=== PATIENT | female | born 1960 | race Caucasian/White ===

== ENCOUNTER 2025-08-31 22:23 | Emergency (ER) | payer SELFPAY ==
[2025-08-31] MEDS ORDERED: KETOROLAC 30 MG/ML INJ ONE (22:28)
[2025-08-31] MEDS ORDERED: NA CHLORIDE 0.9% 1,000 ML ONE (22:28)
[2025-08-31] MEDS ORDERED: ACETAMINOPHEN 500 MG TAB ONE (22:28)
--- NOTE | 2025-08-31 23:45 | ER ---
Nurse's Notes [facility] Name: Ceci Espinosa Age: 65 yrs Sex: Female : 1960 Arrival Date: 08/31/2025 Time: 22:23 Bed 2 Private MD: Diagnosis: Migraine without aura, not intractable Presentation: 08/31 22:26 Chief complaint: EMS states: pt presents to the ED with complaints of a severe kd3 headache, similar to her previous migraines. pt reportedly lost her insurance and has not been able to medicate herself with medications since she is no longer able to pay for them. Pt reports 10/10 headache to the right side on EMS arrival. EMS administered 1.2 mg of droperidol and 4 mg of IM Zofran. pt now reports headache 4/10 on arrival to the ED. Coronavirus screen: Vaccine status: Patient reports receiving the 2nd dose of the covid vaccine. Ebola Screen: No symptoms or risks identified at this time. Initial Sepsis Screen: Does the patient meet any 2 criteria? No. Patient's initial sepsis screen is negative. Does the patient have a suspected source of infection? No. Patient's initial sepsis screen is negative. Risk Assessment: Do you want to hurt yourself or someone else? Patient reports no desire to harm self or others. Onset of symptoms was August 31, 2025. 22:26 Method Of Arrival: EMS: [facility] kd3 22:26 Acuity: VERONICA 3 kd3 Triage Assessment: 22:30 Headache History: The patient has had previous headaches and this one is similar to kd3 previous episodes. General: Appears uncomfortable, Behavior is calm, cooperative. Pain: Pain currently is 4 out of 10 on a pain scale. Pain began gradually, Also complains of nausea, photophobia. 22:30 Neuro: Level of Consciousness is awake, alert, obeys commands, Oriented to person, kd3 place, time, situation. Cardiovascular: Capillary refill < 3 seconds Patient's skin is warm and dry. Historical: - Allergies: 22:30 Celebrex; kd3 - Immunization history:: Adult Immunizations up to date. - Infectious Disease History:: Denies. - Social history:: Smoking status: Patient reports the use of cigarette tobacco products, smokes one-half pack cigarettes per day. Screenin:31 [facility] ED Fall Risk Assessment (Adult) History of falling in the last 3 months, kd3 including since admission No falls in past 3 months (0 pts) Confusion or Disorientation No (0 pts) Intoxicated or Sedated No (0 pts) Impaired Gait No (0 pts) Mobility Assist Device Used No (0 pt) Altered Elimination No (0 pt) Score/Fall Risk Level 0 - 2 = Low Risk Maintained a safe environment. Abuse screen: Denies threats or abuse. Denies injuries from another. Nutritional screening: No deficits noted. Tuberculosis screening: No symptoms or risk factors identified. Assessment: 22:26 General: Appears uncomfortable, Behavior is cooperative, restless. nh2 22:26 Pain: Complains of pain in head Pain does not radiate. Pain currently is 2 out of 10 on nh2 a pain scale. at worst was 10 out of 10 on a pain scale. Quality of pain is described as aching, Pain began years ago, reports having hx of chronic migraines Is intermittent. Neuro: Level of Consciousness is awake, alert, obeys commands, Oriented to person, place, time, situation, Appropriate for age Auto Adjudication Specialist are equal bilaterally Moves all extremities. Speech is normal, Facial symmetry appears normal, Reports headache. Cardiovascular: Denies chest pain, Patient's skin is warm and dry. Respiratory: Airway is patent Respiratory effort is even, unlabored, Breath sounds are clear bilaterally. GI: Abdomen is round obese, Reports nausea, two episodes of emesis. : Reports dark colored-urine. EENT: No signs and/or symptoms were reported regarding the EENT system. Derm: Skin is pink, warm \T\ dry. Musculoskeletal: Circulation, motion, and sensation intact. Range of motion: intact in all extremities. 22:55 Reassessment: transported to the restroom via wheelchair. nh2 23:02 Reassessment: client transported back to bed via wheelchair and reconnected to monitor. nh2 reports relief from headache with no current pain. Denies needs or concerns. Warm blanket applied and call light placed within arms reach. 23:47 Reassessment: Patient appears in no apparent distress at this time. Patient and/or bm8 family updated on plan of care and expected duration. Pain level reassessed. Patient is alert, oriented x 3, equal unlabored respirations, skin warm/dry/pink. Patient denies pain at this time. Patient states feeling better. Patient states symptoms have improved. Vital Signs: 22:26 BP 184 / 98; Pulse 82; Resp 19; Temp 98.2(O); Pulse Ox 96% on R/A; Weight 70.31 kg; kd3 Height 5 ft. 5 in. ; Pain 4/10; 22:40 BP 171 / 79; Pulse 81; Resp 18; Pulse Ox 98% on R/A; nh2 23:10 BP 152 / 83; Pulse 70; Resp 18; Pulse Ox 96% on R/A; nh2 23:43 BP 137 / 75; Pulse 81; Resp 17; Temp 98.2; Pulse Ox 95% ; Pain 0/10; bm8 22:26 Body Mass Index 25.79 (70.31 kg, 165.1 cm) kd3 22:26 Pain Scale: Adult kd3 23:43 Pain Scale: Adult bm8 [place] Coma Score: 23:47 Eye Response: spontaneous(4). Motor Response: obeys commands(6). Verbal Response: bm8 oriented(5). Total: 15. ED Course: 22:24 Patient arrived in ED. kmf 22:24 Rick Alvarado DO is Attending Physician. tt7 22:26 Dominik Redding, MARLENA is Primary Nurse. bm8 22:29 Triage completed. kd3 22:31 Arm band placed on right wrist. kd3 22:31 Patient has correct armband on for positive identification. Provided Education on: kd3 headaches . 22:41 No provider procedures requiring assistance completed. Maintain EMS IV. Dressing nh2 intact. Good blood return noted. Site clean \T\ dry. Gauge \T\ site: 20 G RAC. Flushed with 10 mL NS. 23:47 IV discontinued, intact, bleeding controlled, No redness/swelling at site. Pressure bm8 dressing applied. Administered Medications: 22:34 Drug: Ketorolac IVP 15 mg IVP once Route: IVP; Site: right antecubital; bm8 23:10 Follow up: Response: No adverse reaction; Pain is decreased nh2 22:34 Drug: NS 0.9% IV 1000 ml IV at 1000 ml once; to be given as a bolus over 60 minutes bm8 Route: IV; Rate: 1000 ml; Site: right antecubital; 23:47 Follow up: Response: No adverse reaction; IV Status: Completed infusion bm8 22:34 Drug: Droperidol IVP 0.625 mg IVP once Route: IVP; Site: right antecubital; bm8 23:10 Follow up: Response: No adverse reaction nh2 22:34 Drug: Acetaminophen PO 1000 mg PO once Route: PO; bm8 23:10 Follow up: Response: No adverse reaction; Pain is decreased nh2 Medication: 22:31 VIS not applicable for this client. kd3 Outcome: 23:44 Discharge ordered by tt7 23:47 Discharged to home ambulatory, with family, bm8 23:47 Condition: stable 23:47 Discharge instructions given to patient, family, Instructed on discharge instructions, follow up and referral plans. no drinking with medication, no driving heavy equipment, medication usage, safety practices, Demonstrated understanding of instructions, follow-up care, medications, 23:48 Prescriptions given X 1, bm8 23:50 Patient left the ED. nh2 Signatures: Mae Wallis RN RN kd3 Teresa Ortiz [facility] Dominik Redding RN MARLENA bm8 Ulisses Coffman Jr, RN RN nh2 Rick Alvarado DO DO tt7 Corrections: (The following items were deleted from the chart) 23:05 22:55 Reassessment: assisted to the restroom via wheelchair. nh2 nh2
--- NOTE | 2025-08-31 23:45 | EDPHYS ---
Physician Documentation [facility] Name: Ceci Espinosa Age: 65 yrs Sex: Female : 1960 Arrival Date: 08/31/2025 Time: 22:23 Bed 2 Private MD: ED Physician Rick Alvarado HPI: 08/31 22:30 This 65 yrs old Female presents to ER via EMS with complaints of Headache. tt7 22:30 Patient reports that today she had onset of a right-sided throbbing headache associated tt7 with nausea. She has history of migraine headaches and reports that this feels similar to her typical migraine headaches. Initially the pain was 10/10 in severity. EMS administered 1.25 mg of IV droperidol and 4 mg of IV Zofran. By the time patient arrived to the emergency department she reports that her headache is significantly improved, currently rates it 4/10 in severity. She states that due to financial reasons and lapse in her medical insurance she has not been able to afford her triptan and maintenance migraine headache medications the past month. She denies fever, neck pain, vomiting, chest pain, shortness of breath, focal weakness. Historical: - Allergies: 22:30 Celebrex; kd3 - Immunization history:: Adult Immunizations up to date. - Infectious Disease History:: Denies. - Social history:: Smoking status: Patient reports the use of cigarette tobacco products, smokes one-half pack cigarettes per day. ROS: 22:31 Constitutional: negative for fever. Cardiovascular: negative for chest pain. tt7 Respiratory: negative for shortness of breath. Abdomen/GI: Reports nausea, negative for abdominal pain, vomiting, diarrhea MS/Extremity: negative for injury and deformity. Skin: negative for rash. Neuro: negative for focal weakness. Exam: 22:31 Constitutional: vital signs reviewed, well appearing. Head/Face: normocephalic, tt7 atraumatic. Eyes: PERRL, pupils 4 mm, no nystagmus, no conjunctival injection, anicteric sclerae. ENT: mucus membranes moist. Neck: trachea midline, no JVD, no meningismus. Chest/axilla: normal chest wall appearance and motion, nontender, no crepitus. Cardiovascular: regular rate and rhythm, no murmurs, no rubs, no lower extremity edema. Respiratory: normal respiratory effort, no accessory muscle use, lungs CTAB. Abdomen/GI: soft, nondistended, nontender, no guarding or rebound, negative Olivia's sign, no McBurney point tenderness. Back: normal ROM. Skin: warm, dry, intact, normal turgor, normal color, no rash. MS/ Extremity: normal ROM of extremities, no gross deformities. Neuro: alert and oriented with appropriate mental status, normal speech, follows commands, no focal neurologic deficits. Psych: appropriate mood and affect. Vital Signs: 22:26 BP 184 / 98; Pulse 82; Resp 19; Temp 98.2(O); Pulse Ox 96% on R/A; Weight 70.31 kg; kd3 Height 5 ft. 5 in. ; Pain 4/10; 22:40 BP 171 / 79; Pulse 81; Resp 18; Pulse Ox 98% on R/A; nh2 23:10 BP 152 / 83; Pulse 70; Resp 18; Pulse Ox 96% on R/A; nh2 23:43 BP 137 / 75; Pulse 81; Resp 17; Temp 98.2; Pulse Ox 95% ; Pain 0/10; bm8 22:26 Body Mass Index 25.79 (70.31 kg, 165.1 cm) kd3 22:26 Pain Scale: Adult kd3 23:43 Pain Scale: Adult bm8 [place] Coma Score: 23:47 Eye Response: spontaneous(4). Motor Response: obeys commands(6). Verbal Response: bm8 oriented(5). Total: 15. MDM: 22:24 Medical Screening Exam initiated tt7 22:37 Differential diagnosis: hypertensive headache, migraine, tension headache. tt7 22:37 Data reviewed: vital signs, nurses notes. tt7 22:37 ED course: Well-appearing 65-year-old presents with signs/symptoms of acute migraine tt7 headache, patient is hypertensive on arrival but otherwise has stable vital signs, is improved significantly with prehospital treatment by EMS, physical exam is reassuring, no acute neurologic deficits on exam, will treat the patient's symptoms with medications and reassess. 23:49 ED course: I reassessed the patient, her headache is totally resolved, vital signs tt7 remained stable, will plan to discharge the patient home with prescription for as needed Compazine as this medication is generally inexpensive and help with the patient will be able to afford this and use this as a rescue option to report her migraine headaches when they occur, after completion of the patient's emergency department evaluation, I do not suspect a life-threatening or disabling process. Patient is medically stable and not in need of emergent medical intervention. I had a detailed discussion with the patient regarding the historical points, exam findings, emergency department evaluation, diagnostic results, and the discharge diagnosis. I instructed the patient on outpatient management of their condition. I discussed the need for outpatient follow-up with a primary care physician. I informed the patient on return precautions, including the need to return to the ED if symptoms do not improve, worsen, or if there are any questions or concerns that arise at home. The patient was discharged in stable condition. Administered Medications: 22:34 Drug: Ketorolac IVP 15 mg IVP once Route: IVP; Site: right antecubital; bm8 23:10 Follow up: Response: No adverse reaction; Pain is decreased nh2 22:34 Drug: NS 0.9% IV 1000 ml IV at 1000 ml once; to be given as a bolus over 60 minutes bm8 Route: IV; Rate: 1000 ml; Site: right antecubital; 23:47 Follow up: Response: No adverse reaction; IV Status: Completed infusion bm8 22:34 Drug: Droperidol IVP 0.625 mg IVP once Route: IVP; Site: right antecubital; bm8 23:10 Follow up: Response: No adverse reaction nh2 22:34 Drug: Acetaminophen PO 1000 mg PO once Route: PO; bm8 23:10 Follow up: Response: No adverse reaction; Pain is decreased nh2 Disposition: 23:50 Co-signature as Attending Physician, Rick Alvarado DO. tt7 Disposition Summary: 08/31/25 23:44 Discharge Ordered Notes: Location: Home tt7 Problem: an acute exacerbation tt7 Symptoms: are resolved tt7 Condition: Stable tt7 Diagnosis - Migraine without aura, not intractable tt7 Followup: tt7 - With: Emergency Department - When: As needed - Reason: Followup: tt7 - With: Private Physician - When: 2 - 3 days - Reason: Recheck today's complaints, Re-evaluation by your physician Discharge Instructions: - Discharge Summary Sheet tt7 - Migraine Headache, [id number] tt7 Forms: - Medication Reconciliation Form tt7 - Antibiotic Education tt7 - Prescription Opioid Use tt7 - Patient Portal Instructions tt7 - Leadership Thank You Letter tt7 Prescriptions: - Compazine 10 mg Oral Tablet - take 1 tablet ORAL route every 8 hours As needed; 20 tablet; Refills: 0, tt7 Product Selection Permitted Signatures: Mae Wallis, RN RN kd3 Dominik Redding RN RN bm8 Rick Alvarado DO DO tt7 Ulisses Coffman Jr RN nh2
[2025-09-01 05:55] VITALS: TEMP 98.2
[2025-09-01 05:58] VITALS: BP 137/75; O2SAT 95
== END 2025-08-31 23:50 | disposition home or self-care (01) ==
LOC: ER 22:23
DX: G43.009 Migraine without aura, not intractable, without status migrainosus (principal); F17.210 Nicotine dependence, cigarettes, uncomplicated
CPT/HCPCS: 96361; 96374; 96375; 99284; J1790; J1885; J7030